=== PATIENT | female | born 1995 | race Caucasian/White ===

== ENCOUNTER 2021-01-14 12:06 | Emergency (ER) | payer OTHER ==
[~2021-01-14] VITALS: Ht 162.6 cm; Wt 80.7 kg
[2021-01-14 12:06] VITALS: BP_SYST 153
--- NOTE | 2021-01-14 12:06 | NUR ---
BROUGHT BACK TO BED #7 AND TRIAGED. REPORT GIVEN TO SUNITA
--- NOTE | 2021-01-14 12:07 | NUR ---
Pt brought by partner, A&Ox4, pt presents to ER with anxiety, pt states she has hx of alcoholism, drinking 3-4 trulias a day and shots of vodka, pt states would like to rehab, VSS, respirations even and unlabored, denies bleeding, skin pink and warm,cap refill <3, afebrile, will cont to monitor.
--- NOTE | 2021-01-14 12:15 | NUR ---
Dr Medina evaluating patient at bedside
[2021-01-14] MEDS ORDERED: NACL 0.9% 2,000 ML IV ONE (12:30)
[2021-01-14] MEDS ORDERED: LORazepam 2 MG/ML VIAL IVP ONE (12:30)
[2021-01-14] MEDS ORDERED: LORazepam 2 MG/ML VIAL ONE (12:50)
[2021-01-14 12:53] LABS: BASOPHILS % (AUTO) 0.6 % (0.0-2.0); EOSINOPHILS # (AUTO) 0.1 K/uL (0.0-0.4); EOSINOPHILS % (AUTO) 1.2 % (0.0-4.0); HEMATOCRIT 37.8 % (36-48); HEMOGLOBIN 12.5 g/dL (12.0-16.0); LYMPHOCYTES % (AUTO) 27.8 % (20.5-51.5); MEAN CORPUSCULAR HEMOGLOBIN 29 pg (27-31); MEAN CORPUSCULAR HGB CONC 33 % (32-36); MEAN CORPUSCULAR VOLUME 87 fL (79.0-98.0); MONOCYTES # (AUTO) 0.6 K/uL (0.0-1.0); MONOCYTES % (AUTO) 8.4 % (1.7-9.3); NEUTROPHILS # (AUTO) 4.5 K/uL (1.8-7.7); PLATELET COUNT (AUTO) 244 K/uL (130-430); RED BLOOD CELL COUNT(AUTO) 4.32 MIL/uL (4.2-6.2); WHITE BLOOD COUNT (AUTO) 7.3 K/uL (4.8-10.8)
[2021-01-14 13:03] LABS: ANION GAP 18 (5-15); CALCIUM 9.2 mg/dL (8.4-11.0); CHLORIDE 101 mmol/L (98-107); CREATININE 0.77 mg/dL (0.55-1.30); GLUCOSE 63 mg/dL (70-99); POTASSIUM 3.6 mmol/L (3.5-5.1); SODIUM SERUM 141 mmol/L (136-145); UREA NITROGEN, BLOOD 6 mg/dL (8-21)
[2021-01-14 13:05] LABS: BARBITURATE, URINE NEGATIVE (NEG <=200); BENZODIAZEPINE, URINE NEGATIVE (NEG <=150); CANNABINOID, URINE POSITIVE (NEG <=50); COCAINE, URINE NEGATIVE (NEG <=150); METHAMPHETAMINES SCREEN,URINE NEGATIVE (NEG <=500); OPIATE, URINE NEGATIVE (NEG <=100); PHENCYCLIDINE SCREEN,URINE NEGATIVE (NEG <=25); UR TRICYCLIC ANTIDEPRESSANTS NEGATIVE (NEG <=300); URINE AMPHETAMINE NEGATIVE (NEG <=500); URINE METHADONE NEGATIVE (NEG <=200); URINE OXYCODONE SCREEN NEGATIVE (NEG <=100); URINE PROPOXYPHENE SCREEN NEGATIVE (NEG <=300)
[2021-01-14 13:05] LABS: GFR AFRICAN AMERICAN 116 mL/min (>90)
[2021-01-14 13:19] LABS: ALANINE AMINOTRANSFERASE 126 U/L (12-78); ALCOHOL, BLOOD 96 mg/dL (<10); ASPARTATE AMINOTRANSFERASE 94 U/L (10-37); TOTAL BILIRUBIN 0.5 mg/dL (0.0-1.0)
[2021-01-14 13:23] LABS: ACETAMINOPHEN < 1 ug/mL (1-30)
--- NOTE | 2021-01-14 13:30 | NUR ---
Pt resting at this time after Ativan administration, VSS, respirations even and unlabored.
[2021-01-14] MEDS ORDERED: ONDA-8 TL (13:52)
[2021-01-14] MEDS ORDERED: LORA-258 PO (13:52)
[2021-01-14 14:10] VITALS: BP_SYST 108
--- NOTE | 2021-01-14 14:10 | NUR ---
Patient given written and verbal discharge instructions and verbalizes understanding. ER MD discussed with patient the results and treatment provided. Patient in stable condition. ID arm band removed. Rx of Lorazepam and Zofran given. Patient educated on pain management and to follow up with PMD. Pain Scale 0/10 . Opportunity for questions provided and answered. Medication side effect fact sheet provided.
== END 2021-01-14 14:10 | disposition home or self-care (01) ==
LOC: SED 12:06
DX: F10.239 Alcohol dependence with withdrawal, unspecified (principal); R56.9 Unspecified convulsions; Y90.4 Blood alcohol level of 80-99 mg/100 ml
CPT/HCPCS: 36415; 80053; 80307; 81025; 85025; 96361; 96374; 99283; G0480; J2060; J7030; G0481; G0482